=== PATIENT | male | born 1945 | race Caucasian/White ===

== ENCOUNTER 2016-10-18 09:55 | Observation (INO) | payer OTHER ==
[2016-10-18] MEDS ORDERED: Sodium Chloride 0.9% 1,000 ML PRIMARY IV ONE (10:06)
[2016-10-18] MEDS ORDERED: ONDANSETRON 4 MG/2 ML VIAL IVP ONE (10:06)
[2016-10-18] MEDS ORDERED: MORPHINE SULFATE 4 MG/1 ML IVP ONE (10:06)
--- NOTE | 2016-10-18 10:12 | PDOC ---
Chest Pain HPI - General Chief Complaint: Chest Pain Stated Complaint: CHEST PAIN Date Seen by Provider: 10/18/16 Time Seen by Provider: 10:07 Source: Patient Exam Limitations: POSITIVE: No limitations Treatment Prior to Arrival: REPORTS: None Nurse's Notes Reviewed & Considered: Yes - History of Present Illness Initial Comments: Patient comes in today with chief complaint of chest pain. Patient with sudden onset of chest pain which he describes as pressure in the left substernal region with radiation to his and left arm. He denies any associated shortness of breath. His pain began approximately 4 hours prior to presentation here in emergency department. At that time he got not to put his dog outside this evening when he noticed he had chest pressure. It was not changed since he awoke this morning at 0600. He denies any fever chills sweats, no headache, no cough, no abdominal pain, no nausea vomiting or diarrhea. Patient was convinced by a friend to come in and be evaluated. Body Location Affected: REPORTS: Chest Timing: REPORTS: Abrupt Duration: 4-6 hours Severity: Moderate Persistent/Worse since (date): 10/18/16 Persistent/Worse since (time): 06:00 Context: REPORTS: Sleep Quality: REPORTS: Pressure Radiation: REPORTS: Jaw (L), Shoulder (L), Arm (L) Modifying Factors: improves with: None Reported Similar Symptoms Previously: No Recently seen/treated/hospitalized: No Any Prior Injuries Related to Current Complaint?: No - Patient Home Medications Home Medications: Home Medications Aspirin [Baby Aspirin] 81 mg PO DAILY 11/21/11 Blood-Glucose Meter [Onetouch Verio Iq] 1 each MC BID #180 strip 07/13/15 Amlodipine Besylate 1 tab PO DAILY #90 tab 06/12/16 Lisinopril 1 tab ORAL QD #90 tab 06/12/16 Metformin HCl 1 tab PO BID #180 tab 06/12/16 Pravastatin Sodium [Pravachol] 1 tab PO QHS #90 tab 06/12/16 Sitagliptin Phosphate [Januvia] 1 tab PO DAILY #90 tab 06/12/16 - Patient Allergies Allergies/Adverse Reactions: Allergies Allergy/AdvReac Type Severity Reaction Status Date / Time NSAIDS (Non-Steroidal Allergy Mild NOT Verified 10/18/16 10:01 Anti-Inflamma APPLICABLE ibuprofen Allergy Unknown NOT Verified 10/18/16 10:01 APPLICABLE Penicillins Allergy Unknown Anaphylaxis Verified 10/18/16 10:01 Sulfa (Sulfonamide Allergy Unknown Anaphylaxis Verified 10/18/16 10:01 Antibiotics) [Sulfa(Sulfonamide Antibiotics)] hydrocodone AdvReac Severe acts like Verified 10/18/16 10:01 a fool, gets very hot Past Medical History - heen HEENT History: Denies History Cardiovascular History: Hypertension, Hyperlipidemia Respiratory History: Other (please comment) Additional Respiratory History: chronic tobacco abuse Gastrointestinal History: Other (please comment) Additional Gastrointestinal History: Appy Genitourinary History: Denies History Endocrine History: Type 2 Diabetes (oral) Musculoskeletal History: Limited ROM, Joint Pain, Other (please comment) Additional Musculoskeletal History: Rt Rotator cuff surgery, Lt shoulder sugery for bone spur Neurological History: Denies History Blood Disorders: Denies History Psychiatric History: Denies History Cancer History: Denies History Alcohol Use: None Substance Use Type: None ROS - Limitations ROS Limitations: No Limitations Constitution: REPORTS: Denies Symptoms Cardiovascular: REPORTS: Chest Pain Respiratory: REPORTS: Denies Resp Symptoms Neurological: REPORTS: Denies Neuro Symptoms Gastrointestinal: REPORTS: Denies GI Symptoms Endocrine: REPORTS: Denies Symptoms Musculoskeletal: REPORTS: Denies MS Symptoms Genitourinary: REPORTS: Denies Symptoms Eyes: REPORTS: Denies Symptoms ENT: REPORTS: Denies Symptoms Skin: REPORTS: Denies Skin Symptoms Lympathic: REPORTS: Denies Lympathic Symptoms Immunologic: POSITIVE: Denies Symptoms Psychiatric: POSITIVE: Denies Psych Symptoms Chest Pain PE - General Appearance General Appearance: REPORTS: Alert, Cooperative, No Acute Distress, No Evidence of Trauma - HEENT HEENT: POSITIVE: Head Inspection Nml, Eyes Inspection Nml, Ears Inspection Nml, Nose Inspection Nml, PERRL, EOMI - Neck Neck: REPORTS: Normal Inspection - Respiratory Respiratory: REPORTS: No Respiratory Distress, Breath Sounds Normal, Chest Non- Tender - Cardiovascular Cardiovascular: REPORTS: Regular Rate and Rhythm, Heart Sounds Normal - Abdomen Abdomen: Soft: (All Quadrants), Normal Bowel Sounds: (All Quadrants), Denies Tenderness: (All Quadrants) - Skin Skin: REPORTS: Intact, Normal For Race, Warm, Dry, No Rash - Extremities Extremity: Non-Tender: (All Extremities), Normal ROM: (All Extremities), Normal Inspection: (All Extremities) - Neurological / Psychological Neurological: POSITIVE: Affect 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, 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, 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 As Tested, Motor Normal, Sensation Normal Chest Pain Progress - Results Reviewed by me Xrays/CTs/US Reviewed by me: Yes Discussed with Radiologist: No Lab Results Reviewed: Yes Lab Results:: Laboratory Results 10/18/16 Range/Units 10:02 WBC 7.96 (4.8-10.8) 10^3/uL RBC 4.70 (4.70-6.10) 10^6/uL Hgb 14.7 (14.0-18.0) g/dL Hct 42.8 (42.0-52.0) % MCV 91.1 H (80-90) FL MCH 31.3 H (27-31) PG MCHC 34.3 (33-37) g/dL RDW Std Deviation 43.6 (39-50) fL RDW Coeff of Eve 13.2 (11.5-14.5) % Plt Count 246 (140-350) 10*3/uL MPV 10.3 (7.4-12.2) FL Immature Gran % (Auto) 0.3 (0-5) % Neut % (Auto) 54.4 (50-80) % Lymph % (Auto) 31.9 (10-50) % [place] % (Auto) 8.5 (5-15) % Eos % (Auto) 4.1 (0-8) % Baso % (Auto) 0.8 (0-1) % Immature Gran # (Auto) 0.02 10*3/UL Neut # (Auto) 4.33 10*3/UL Lymph # (Auto) 2.54 10*3/uL [place] # (Auto) 0.68 (0.3-0.8) 10*3/UL Eos # (Auto) 0.33 10*3/UL Baso # (Auto) 0.06 10*3/UL WBC Morphology Comment Normal morphology (NORM) Plt Morphology Comment Normal morphology (NORM) RBC Morph Comment Normal morphology (NORM) D-Dimer 0.30 (0.00-0.59) mg/L Sodium 135 (135-145) meq/L Potassium 4.5 (3.8-5.2) meq/L Chloride 98 (98-112) meq/L Carbon Dioxide 26 (23-33) meq/L Anion Gap 11 (5-20) BUN 10 (7-22) mg/dL Creatinine 0.8 (0.70-1.50) mg/dL Estimated GFR > 60 (>60 ml/min/1.73m(2)) BUN/Creatinine Ratio 12.50 (6-20) Glucose 304 H (78-110) mg/dL Calculated Osmolality 289.0 (267-292) mOsm/kg Calcium 9.5 (8.7-10.7) mg/dL Magnesium 1.8 (1.6-2.4) mg/dL Total Bilirubin 1.1 (0.3-1.2) mg/dL AST 21 (21-57) IU/L ALT 21 (21-72) IU/L Alkaline Phosphatase 70 (38-126) IU/L Troponin I < 0.012 (< 0.040) ng/mL NT-Pro-B Natriuret Pep 69.2 (0-125) PG/ML Total Protein 7.8 (6.1-8.0) g/dL Albumin 4.6 (3.5-4.8) g/dL Globulin 3.2 (2.50-4.10) g/dL Albumin/Globulin Ratio 1.40 (1.3-2.0) mg/g EKG Interpretation:: POSITIVE: Normal Sinus Rhythm (With sinus arrhythmia), Normal Rate, Normal Intervals, Normal QRS, Normal ST/T - Patient's Progress Pain Medication Addressed: POSITIVE: Yes Re-Examine Time: 10:58 Status: POSITIVE: Improved MDM / ED Course: The patient was evaluated, IV started, blood drawn and sent to lab for studies, EKG and chest x-rays were obtained. Patient's chest pain went from a 6 to a 1 with one sublingual nitroglycerin. His systolic blood pressure dropped to 101 after 1 nitroglycerin sublingual. Findings: EKG shows a sinus rhythm with a sinus arrhythmia and a rate of sitting 9 beats a minute. Chest x-ray shows no acute cardiopulmonary decompensation. Compensated metabolic panel shows glucose greater than 300 the remainder of the panel is normal. CBC is within normal limits. Magnesium is normal at 1.8. TSH is normal. Troponin is normal. D-dimer is normal. Assessment: Chest pain relieved with nitroglycerin. Normal troponin and equivocal EKG. Positive risk factors of diabetes mellitus, and history of smoking one pack a day. Plan: Admission rule out [place]. Quality Measure Initiative: CP/AMI: POSITIVE: EKG, ASA Quality Measure Initiative: CAP: POSITIVE: CXR or CT Patient Care Time - Estimated PCT Patient Care Time (In Minutes): 30 Vital Signs - Recent Vital Signs Vital Signs: Vital Signs (Last 8 hours) Temp Pulse Resp BP Pulse Ox 10/18/16 10:03 97.9 F 72 12 128/69 97 - VS Reviewed Vital Signs Reviewed: Yes Discharge Clinical Impression: Chest pain Discharge Disposition: Admit to Inpatient Condition: Stable Patient Instructions Given at Discharge: Chest Pain (ED) Date Decision to Admit to Inpatient: 10/18/16 Time Decision to Admit to Inpatient: 11:01
[2016-10-18] MEDS ORDERED: ASPIRIN 81 MG (BABY) CHEWABLE TABLET PO ONE (10:14)
[2016-10-18] MEDS ORDERED: NITROGLYCERIN 0.4 MG SL TAB (BOTTLE OF 3) SL ONE (10:14)
[2016-10-18 10:15] LABS: BASOPHILS # (AUTO) 0.06 10*3/UL; BASOPHILS % (AUTO) 0.8 % (0-1); EOSINOPHILS # (AUTO) 0.33 10*3/UL; EOSINOPHILS % (AUTO) 4.1 % (0-8); HEMATOCRIT 42.8 % (42.0-52.0); HEMOGLOBIN 14.7 g/dL (14.0-18.0); LYMPHOCYTES # (AUTO) 2.54 10*3/uL; MEAN CORPUSCULAR HEMOGLOBIN 31.3 PG (27-31); MEAN CORPUSCULAR HGB CONC 34.3 g/dL (33-37); MEAN CORPUSCULAR VOLUME 91.1 FL (80-90); MEAN PLATELET VOLUME 10.3 FL (7.4-12.2); MONOCYTES # (AUTO) 0.68 10*3/UL (0.3-0.8); MONOCYTES % (AUTO) 8.5 % (5-15); NEUTROPHILS # (AUTO) 4.33 10*3/UL; NEUTROPHILS % (AUTO) 54.4 % (50-80)
[2016-10-18 10:17] LABS: PLATELET MORPHOLOGY COMMENT NORMAL MORPHOLOGY (NORM); RBC MORPHOLOGY COMMENT NORMAL MORPHOLOGY (NORM); WBC MORPHOLOGY COMMENT NORMAL MORPHOLOGY (NORM)
[2016-10-18 10:20] LABS: BLOOD UREA NITROGEN 10 mg/dL (7-22); CALCIUM 9.5 mg/dL (8.7-10.7); EST GLOMERULAR FILTRATION > 60 (>60 ml/min/1.73m(2)); MAGNESIUM 1.8 mg/dL (1.6-2.4); SERUM ALBUMIN 4.6 g/dL (3.5-4.8)
--- NOTE | 2016-10-18 11:40 | PDOC ---
History and Physical - History of Present Illness History of Present Illness: The very nice 71-year-old gentleman with past medical history significant for diabetes and tobacco use was in ER complaining of chest pressure in the left substernal region that radiates to his left arm he denies any association of shortness of breath or diaphoresis and his pain started about 4 hours before presenting to the ER denies nausea vomiting chest pain was relieved by nitroglycerin sublingual initial troponins were negative Past Medical History Medical History: Diabetes, hypertension, tobacco use Tobacco Use: Current Every Day Smoker Substance Use Type: None Medication / Allergies Home Medications: Home Medications Medication Instructions Recorded Confirmed Type Aspirin [Baby Aspirin] 81 mg PO DAILY 11/21/11 10/18/16 History Blood-Glucose Meter [Onetouch 1 each MC BID #180 strip 07/13/15 10/18/16 Clinic Verio Iq] Amlodipine Besylate 1 tab PO DAILY #90 tab 06/12/16 10/18/16 Clinic Lisinopril 1 tab ORAL QD #90 tab 06/12/16 10/18/16 Clinic Metformin HCl 1 tab PO BID #180 tab 06/12/16 10/18/16 Clinic Pravastatin Sodium [Pravachol] 1 tab PO QHS #90 tab 06/12/16 10/18/16 Clinic Sitagliptin Phosphate [Januvia] 1 tab PO DAILY #90 tab 06/12/16 10/18/16 Clinic Allergies/Adverse Reactions: Allergies Allergy/AdvReac Type Severity Reaction Status Date / Time NSAIDS (Non-Steroidal Allergy Mild NOT Verified 10/18/16 10:01 Anti-Inflamma APPLICABLE ibuprofen Allergy Unknown NOT Verified 10/18/16 10:01 APPLICABLE Penicillins Allergy Unknown Anaphylaxis Verified 10/18/16 10:01 Sulfa (Sulfonamide Allergy Unknown Anaphylaxis Verified 10/18/16 10:01 Antibiotics) [Sulfa(Sulfonamide Antibiotics)] hydrocodone AdvReac Severe acts like Verified 10/18/16 10:01 a fool, gets very hot Review of Systems - Review of Systems All Systems: Reviewed & No Additional Complaints Except as Stated - Respiratory Respiratory: DENIES: Negative System Review, Cough, Sputum, Dyspnea At Rest, Dyspnea with Exertion, Pleuritic Pain, Hemoptysis, Wheezing, Other, See HPI - Cardiovascular Cardiovascular: REPORTS: Chest Pain - Gastrointestinal Gastrointestinal / Abdominal: DENIES: Negative System Review, Nausea, Vomiting, Diarrhea, Constipation, Abdominal Pain, Bloody Stool, Poor Appetite, Heartburn, Regurgitation, Bloating, Lactose Intolerance, Melena, Bright Red Blood Per Rectum, Other, See HPI - Genitourinary Genitourinary: DENIES: Negative System Review, Pain, Burning, Hematuria, Incontinence, Urgency, Hesitant Stream, Decreased Stream, Nocutria, Discharge, Sexual Dyfunction, Other, See HPI Exam - Vitals Vital Signs: Vital Signs Temperature 97.9 F Temperature Source Temporal Artery Scan Pulse Rate [Pulse Oximeter] 72 Respiratory Rate 12 Blood Pressure [Right Arm] 128/69 Pulse Ox 97 Oxygen Delivery Method Room Air Height 5 ft 6 in Weight 68.039 kg - General General Appearance: POSITIVE: No Acute Distress, Cooperative - Head Head Exam: POSITIVE: Normal Inspection, Normocephalic, Atraumatic - ENT ENT Exam: POSITIVE: Normal Exam - Neck Neck Exam: POSITIVE: Normal Inspection, Full ROM, No Tenderness - Respiratory Respiratory Exam: POSITIVE: Clear to Auscultation - Bilaterally, Breathing Non Labored, Normal To Percussion, Normal to Percussion and Palpation - Cardiovascular Cardiovascular Exam: POSITIVE: RRR, No Murmur, No Clicks, No Gallops - GI/Abdominal GI/Abdominal Exam: POSITIVE: Normal Bowel Sounds, Non Tender, Soft - Extremities Extremities Exam: POSITIVE: No Clubbing Present, No Edema Present, No Cyanosis Present - Neurological Neurological Exam: POSITIVE: Alert, Oriented x 3, CN II-XII Intact, No Facial Droop - Psychiatric Psychiatric Exam: POSITIVE: Normal Affect Results - Labs CBC and BMP: 10/18/16 10:02 10/18/16 10:02 Labs - Last 24 Hours: Laboratory Results 10/18/16 Range/Units 10:02 WBC 7.96 (4.8-10.8) 10^3/uL RBC 4.70 (4.70-6.10) 10^6/uL Hgb 14.7 (14.0-18.0) g/dL Hct 42.8 (42.0-52.0) % MCV 91.1 H (80-90) FL MCH 31.3 H (27-31) PG MCHC 34.3 (33-37) g/dL RDW Std Deviation 43.6 (39-50) fL RDW Coeff of Eve 13.2 (11.5-14.5) % Plt Count 246 (140-350) 10*3/uL MPV 10.3 (7.4-12.2) FL Immature Gran % (Auto) 0.3 (0-5) % Neut % (Auto) 54.4 (50-80) % Lymph % (Auto) 31.9 (10-50) % [place] % (Auto) 8.5 (5-15) % Eos % (Auto) 4.1 (0-8) % Baso % (Auto) 0.8 (0-1) % Immature Gran # (Auto) 0.02 10*3/UL Neut # (Auto) 4.33 10*3/UL Lymph # (Auto) 2.54 10*3/uL [place] # (Auto) 0.68 (0.3-0.8) 10*3/UL Eos # (Auto) 0.33 10*3/UL Baso # (Auto) 0.06 10*3/UL WBC Morphology Comment Normal morphology (NORM) Plt Morphology Comment Normal morphology (NORM) RBC Morph Comment Normal morphology (NORM) D-Dimer 0.30 (0.00-0.59) mg/L Sodium 135 (135-145) meq/L Potassium 4.5 (3.8-5.2) meq/L Chloride 98 (98-112) meq/L Carbon Dioxide 26 (23-33) meq/L Anion Gap 11 (5-20) BUN 10 (7-22) mg/dL Creatinine 0.8 (0.70-1.50) mg/dL Estimated GFR > 60 (>60 ml/min/1.73m(2)) BUN/Creatinine Ratio 12.50 (6-20) Glucose 304 H (78-110) mg/dL Calculated Osmolality 289.0 (267-292) mOsm/kg Calcium 9.5 (8.7-10.7) mg/dL Magnesium 1.8 (1.6-2.4) mg/dL Total Bilirubin 1.1 (0.3-1.2) mg/dL AST 21 (21-57) IU/L ALT 21 (21-72) IU/L Alkaline Phosphatase 70 (38-126) IU/L Troponin I < 0.012 (< 0.040) ng/mL NT-Pro-B Natriuret Pep 69.2 (0-125) PG/ML Total Protein 7.8 (6.1-8.0) g/dL Albumin 4.6 (3.5-4.8) g/dL Globulin 3.2 (2.50-4.10) g/dL Albumin/Globulin Ratio 1.40 (1.3-2.0) mg/g TSH 1.51 (0.2700-4.2000) uIU/mL Assessment and Plan - Patient Problems (1) Chest pain Current Visit: Yes Status: Acute Comment: We will admit the patient is a pretty good story and risk factors of hypertension diabetes and smoking we will rule out with serial troponins continue usual home meds consisting of a statin aspirin and diabetes meds we will order chemical stress test for him patient was examined with nursing staff and case discussed with nursing staff and patient (2) Diabetes Current Visit: Yes Status: Acute Comment: Continue usual medication
[2016-10-18] MEDS ORDERED: NITROGLYCERIN 0.4 MG SL TAB (BOTTLE OF 3) SL PRN (11:54)
[2016-10-18] MEDS ORDERED: LIDOCAINE W/ SODIUM BICARB 0.5 ML SYR SUBD PRN (11:54)
[2016-10-18] MEDS ORDERED: NORMAL SALINE 10 ML SYRINGE FLUSH IVP PRN (11:54)
--- NOTE | 2016-10-18 12:51 | EKG ---
[address] [address] Measurements Intervals [place] Rate: 69 P: 72 IN: 167 QRS: 56 QRSD: 93 T: 54 QT: 376 QTc: 395 Interpretive Statements SINUS RHYTHM WITH SINUS ARRHYTHMIA INCOMPLETE RIGHT BUNDLE BRANCH BLOCK No previous ECG available for comparison Electronically Signed On 10-18-16 16:42:23 MDT by Prashant Fonseca [email or web address]
[2016-10-18 13:26] LABS: TROPONIN I < 0.012 ng/mL (< 0.040)
[2016-10-18] MEDS: metFORMIN 500 MG TABLET PO SCH (20:03)
[2016-10-18] MEDS ORDERED: Pravastatin 80mg Tab PO SCH (21:00)
[2016-10-19 05:12] LABS: BLOOD UREA NITROGEN 16 mg/dL (7-22); BUN/CREATININE RATIO 17.77 (6-20); CALCIUM 9.4 mg/dL (8.7-10.7); EST GLOMERULAR FILTRATION > 60 (>60 ml/min/1.73m(2)); SERUM ALBUMIN 3.8 g/dL (3.5-4.8)
[2016-10-19] MEDS: metFORMIN 500 MG TABLET PO SCH (08:07)
[2016-10-19] MEDS ORDERED: ENOXAPARIN SODIUM 40 MG/0.4 ML SYRINGE SUBCUT SCH (09:00)
[2016-10-19] MEDS ORDERED: LISINOPRIL 5 MG TABLET PO SCH (09:00)
[2016-10-19] MEDS ORDERED: sitaGLIPtin Tab 100 MG TAB PO SCH (09:00)
[2016-10-19] MEDS ORDERED: AmLODIPine Tab 5 MG TABLET PO SCH (09:00)
[2016-10-19] MEDS ORDERED: ASPIRIN 81 MG (BABY) CHEWABLE TABLET PO SCH (09:00)
--- NOTE | 2016-10-19 09:50 | STRESSTEST ---
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
--- NOTE | 2016-10-19 10:31 | DCSUMMARY ---
Hospitalization Summary Hospital Course: Final Discharge Diagnosis: Current Visit Problems Problem Status Priority Diagnosed Code Chest pain Acute R07.9 Diabetes Acute E11.9 Diagnostic Data, Laboratory Data, and Procedures of Signifigance: Laboratory Results 10/18/16 10/18/16 10/18/16 Range/Units 10:02 10:06 16:18 WBC 7.96 (4.8-10.8) 10^3/uL RBC 4.70 (4.70-6.10) 10^6/uL Hgb 14.7 (14.0-18.0) g/dL Hct 42.8 (42.0-52.0) % MCV 91.1 H (80-90) FL MCH 31.3 H (27-31) PG MCHC 34.3 (33-37) g/dL RDW Std Deviation 43.6 (39-50) fL RDW Coeff of Eve 13.2 (11.5-14.5) % Plt Count 246 (140-350) 10*3/uL MPV 10.3 (7.4-12.2) FL Immature Gran % (Auto) 0.3 (0-5) % Neut % (Auto) 54.4 (50-80) % Lymph % (Auto) 31.9 (10-50) % [place] % (Auto) 8.5 (5-15) % Eos % (Auto) 4.1 (0-8) % Baso % (Auto) 0.8 (0-1) % Immature Gran # (Auto) 0.02 10*3/UL Neut # (Auto) 4.33 10*3/UL Lymph # (Auto) 2.54 10*3/uL [place] # (Auto) 0.68 (0.3-0.8) 10*3/UL Eos # (Auto) 0.33 10*3/UL Baso # (Auto) 0.06 10*3/UL WBC Morphology Comment Normal morphology (NORM) Plt Morphology Comment Normal morphology (NORM) RBC Morph Comment Normal morphology (NORM) D-Dimer 0.30 (0.00-0.59) mg/L Sodium 135 (135-145) meq/L Potassium 4.5 (3.8-5.2) meq/L Chloride 98 (98-112) meq/L Carbon Dioxide 26 (23-33) meq/L Anion Gap 11 (5-20) BUN 10 (7-22) mg/dL Creatinine 0.8 (0.70-1.50) mg/dL Estimated GFR > 60 (>60 ml/min/1.73m(2)) BUN/Creatinine Ratio 12.50 (6-20) Glucose 304 H (78-110) mg/dL Calculated Osmolality 289.0 (267-292) mOsm/kg Calcium 9.5 (8.7-10.7) mg/dL Magnesium 1.8 (1.6-2.4) mg/dL Total Bilirubin 1.1 (0.3-1.2) mg/dL AST 21 (21-57) IU/L ALT 21 (21-72) IU/L Alkaline Phosphatase 70 (38-126) IU/L Total Creatine Kinase 45 L (55-170) IU/L Troponin I < 0.012 < 0.012 < 0.012 (< 0.040) ng/mL NT-Pro-B Natriuret Pep 69.2 (0-125) PG/ML Total Protein 7.8 (6.1-8.0) g/dL Albumin 4.6 (3.5-4.8) g/dL Globulin 3.2 (2.50-4.10) g/dL Albumin/Globulin Ratio 1.40 (1.3-2.0) mg/g TSH 1.51 (0.2700-4.2000) uIU/mL 10/19/17 Range/Units 04:45 WBC (4.8-10.8) 10^3/uL RBC (4.70-6.10) 10^6/uL Hgb (14.0-18.0) g/dL Hct (42.0-52.0) % MCV (80-90) FL MCH (27-31) PG MCHC (33-37) g/dL RDW Std Deviation (39-50) fL RDW Coeff of Eve (11.5-14.5) % Plt Count (140-350) 10*3/uL MPV (7.4-12.2) FL Immature Gran % (Auto) (0-5) % Neut % (Auto) (50-80) % Lymph % (Auto) (10-50) % [place] % (Auto) (5-15) % Eos % (Auto) (0-8) % Baso % (Auto) (0-1) % Immature Gran # (Auto) 10*3/UL Neut # (Auto) 10*3/UL Lymph # (Auto) 10*3/uL [place] # (Auto) (0.3-0.8) 10*3/UL Eos # (Auto) 10*3/UL Baso # (Auto) 10*3/UL WBC Morphology Comment (NORM) Plt Morphology Comment (NORM) RBC Morph Comment (NORM) D-Dimer 0.67 H (0.00-0.59) mg/L Sodium 135 (135-145) meq/L Potassium 4.4 (3.8-5.2) meq/L Chloride 103 (98-112) meq/L Carbon Dioxide 23 (23-33) meq/L Anion Gap 9 (5-20) BUN 16 (7-22) mg/dL Creatinine 0.9 (0.70-1.50) mg/dL Estimated GFR > 60 (>60 ml/min/1.73m(2)) BUN/Creatinine Ratio 17.77 (6-20) Glucose 261 H (78-110) mg/dL Calculated Osmolality 289.0 (267-292) mOsm/kg Calcium 9.4 (8.7-10.7) mg/dL Magnesium (1.6-2.4) mg/dL Total Bilirubin 0.9 (0.3-1.2) mg/dL AST 17 L (21-57) IU/L ALT 20 L (21-72) IU/L Alkaline Phosphatase 61 (38-126) IU/L Total Creatine Kinase (55-170) IU/L Troponin I (< 0.040) ng/mL NT-Pro-B Natriuret Pep (0-125) PG/ML Total Protein 6.5 (6.1-8.0) g/dL Albumin 3.8 (3.5-4.8) g/dL Globulin 2.8 (2.50-4.10) g/dL Albumin/Globulin Ratio 1.30 (1.3-2.0) mg/g TSH (0.2700-4.2000) uIU/mL History and Physical pertinent to Admission: Course of Hospitalization: Is a very nice 71-year-old gentleman with past medical history significant for diabetes and hypertension comes into the hospital with the substernal chest pain radiating to his left arm and hand this is all resolved now is that her troponins remained negative 3 no changes on EKG we have done a stress test today and we are waiting for results and imaging most likely the results we will have this afternoon if these are negative he will be discharged home in stable and improved condition he is very excited about the leaving the hospital since he has to receive a long chain beamer to work tomorrow. Denies chest pain nausea vomiting stress test was mildly positive I discussed the case with Dr. Campbell cardiology at [facility] he recommended that the patient did not need to go up in transfer for immediate catheter since the troponins were negative no acute signs on EKG he recommended that the patient go to his office on and possibly have a cast on Friday he said that his office will call the patient at home he knew the number since the patient had seen him in the past or their office I've called Beth the nurse charge nurse who communicated all the above to the patient and the patient was discharged home On the date of discharge, the patient was examined: Gen.: No acute distress, alert, nontoxic Heart: Regular rate and rhythm, no murmurs, clicks, gallops, or rubs Lungs: Clear to auscultation bilaterally, breathing is nonlabored Abdomen/GI: Normal tones on auscultation, soft, nontender, nondistended Musculoskeletal/extremities: No clubbing, cyanosis, or edema Vitals reviewed and are listed below Vital Signs (24 hrs) Temp Pulse Pulse Pulse Resp BP Pulse Ox 10/19/16 09:00 97.2 F 60 18 128/64 96 10/19/16 07:00 55 L 10/19/16 05:11 93 10/19/16 04:59 97.1 F 55 L 20 119/47 93 10/19/16 03:00 56 L 10/19/16 01:00 97.6 F 61 18 125/47 97 10/18/16 23:00 56 L 10/18/16 20:17 98.0 F 63 16 112/55 92 10/18/16 19:00 63 60 10/18/16 17:00 98.1 F 57 L 20 105/49 93 10/18/16 13:00 61 16 124/60 94 10/18/16 12:03 61 20 Assessment and Plan: 1. As per discharge assessments above 2. Disposition: Home if stress test is negative depending on the severity we will arrange follow-up with the cardiology and we get the result if it is positive 3. Condition on discharge, stable and improved. 4. Diet: regular diet 5. Activities: resume normal activities 6. Follow-Up: 1. PCP 2. 7. Medications at the Time of Discharge: Home Medications Medication Instructions Recorded Confirmed Type Aspirin [Baby Aspirin] 81 mg PO DAILY 11/21/11 10/18/16 History Blood-Glucose Meter [Onetouch 1 each MC BID #180 strip 07/13/15 10/18/16 Clinic Verio Iq] Amlodipine Besylate 1 tab PO DAILY #90 tab 06/12/16 10/18/16 Clinic Lisinopril 1 tab ORAL QD #90 tab 06/12/16 10/18/16 Clinic Metformin HCl 1 tab PO BID #180 tab 06/12/16 10/18/16 Clinic Pravastatin Sodium [Pravachol] 1 tab PO QHS #90 tab 06/12/16 10/18/16 Clinic Sitagliptin Phosphate [Januvia] 1 tab PO DAILY #90 tab 06/12/16 10/18/16 Clinic 8. Time, care, counseling and coordination of care for this discharge is greater than 30 minutes. Exam - Vitals Vital Signs: Vital Signs Temperature 97.2 F Temperature Source Temporal Artery Scan Pulse Rate [Apical] 60 Pulse Rate [Pulse Oximeter] 60 Pulse Rate 55 Respiratory Rate 18 Blood Pressure [Right Arm] 128/64 Pulse Ox 96 Oxygen Delivery Method Room Air Height 5 ft 6 in Weight 67.041 kg Patient Problems - Patient Problem List (1) Chest pain Status: Acute (2) Diabetes Status: Acute
--- NOTE | 2016-10-19 12:42 | DI ---
XR CXR 1VW,10/18/2016 10:19 AM: Clinical History: Chest pain Previous Exam: March 04, 2013 Findings: A single frontal radiograph of the chest is obtained, and demonstrates some mild subsegmental atelect asis in the lung bases. The cardiomediastinum and bony thorax are unremarkable when compared with the prior exams. Impression: No acute disease.
--- NOTE | 2016-10-19 12:46 | DI ---
HISTORY: Chest pain. PREVIOUS EXAM: None at this facility. TECHNIQUE: The patient was stressed by Dr. Randolph Gross. The standard Lexiscan protocol was used. Please see the Doctor's report. At the designated time, 33.0 mCi of 99Tc-sestimibi was injected IV. Stress gated tomograms were acquired within one hour of the i njection. For the resting scans, 34.0 mCi was injected IV and resting gated tomograms were acquired in similar fashion. Stress scans were performed on October 18, 2016; the resting scans were performed on October 19, 2016. FINDINGS: Quantitative and qualitative analyses were performed. Quantitative analysis was performed with the [facility] [id number] protocols. Very low dose limited CT scans of the chest are obtained through the level of the heart for attenuation correction of the gated stress and rest cardiac SPECT data. Non-attenuated and attenuated scans were processed for review, and the atten uated scans were used for final interpretation of this study. Review of the raw data images and quality assurance supervisor final files indicate that these series of examinations ar e of good quality. Stress and rest left ventricular chamber sizes are normal. Stress and rest LVEF ar e 73 % and 68 %, respectively. There is a medium-sized anterior apical fixed defect as well as a large inferior septal defect. These are both predominantly fixed with some very mild reversibility involving the apex and a very small a sergey around the apex. Transient ischemic dilatation ratio is 1.02, with a normal range up to 1.22 for patients stressed wit h the Kumar protocol and up to 1.33 for patients stressed with the Lexiscan protocol. The very low dose CT scans through the level of the heart demonstrate multiple coronary artery calcif ications and peripheral vascular calcifications. There is a 12 mm nodule within the right lung base j ust superior to the right hemithorax. The upper abdomen is unremarkable. IMPRESSION: 1. Predominantly fixed anterior and septal wall defects with very mild reversibility of the apex. 2. Normal ejection fraction and wall motion. 3. 12 mm nodule within the right lung base. Recommend follow-up imaging as per Fleischner Society gu idelines.
[2016-10-19 12:51] VITALS: RESP 16; TEMP 97.8
== END 2016-10-19 13:33 | disposition home or self-care (01) ==
LOC: ER 09:55 → MED/SURG 11:31
PROVIDERS: ADMIT Internal Medicine; ATTEND Internal Medicine
DX: R07.9 Chest pain, unspecified (principal); E11.9 Type 2 diabetes mellitus without complications; Z72.0 Tobacco use
CPT/HCPCS: 36415 ×2; 71010; 78452; 80053 ×2; 82550; 83735; 83880; 84443; 84484; 85025; 85379 ×2; 93005; 93010; 93016; 93017; 93018; 94761; 99284 ×2; A9500; J1650; J2785; J7030

== ENCOUNTER → 2016-12-06 | Outpatient (CLI) | payer OTHER ==
[2016-12-06 10:15] LABS: HEMOGLOBIN A1C 13.21 % (4.2-6.0)
[2016-12-06 10:46] LABS: CREATININE, URINE 172.9 MG/DL (15-500)
== END ==
LOC: LAB 08:23
PROVIDERS: ATTEND Internal Medicine
DX: E11.9 Type 2 diabetes mellitus without complications (principal)
CPT/HCPCS: 82043; 83036

== ENCOUNTER → 2016-12-24 | Outpatient (CLI) | payer OTHER | LOC: MMPC 15:10 | PROVIDERS: ATTEND Internal Medicine | DX: E11.9 Type 2 diabetes mellitus without complications (principal); I10 Essential (primary) hypertension; E78.5 Hyperlipidemia, unspecified | CPT/HCPCS: G0108 ==

== ENCOUNTER → 2017-01-14 | Outpatient (CLI) | payer OTHER ==
[2017-01-14 17:31] LABS: BASOPHILS # (AUTO) 0.09 10*3/UL; EOSINOPHILS % (AUTO) 5.6 % (0-8); HEMATOCRIT 44.8 % (42.0-52.0); HEMOGLOBIN 14.9 g/dL (14.0-18.0); MEAN CORPUSCULAR HEMOGLOBIN 30.4 PG (27-31); MEAN CORPUSCULAR HGB CONC 33.3 g/dL (33-37); MEAN CORPUSCULAR VOLUME 91.4 FL (80-90); MEAN PLATELET VOLUME 11.2 FL (7.4-12.2); MONOCYTES # (AUTO) 0.74 10*3/UL (0.3-0.8); MONOCYTES % (AUTO) 8.4 % (5-15); NEUTROPHILS % (AUTO) 61.1 % (50-80)
[2017-01-14 17:34] LABS: PLATELET MORPHOLOGY COMMENT NORMAL MORPHOLOGY (NORM); RBC MORPHOLOGY COMMENT NORMAL MORPHOLOGY (NORM); WBC MORPHOLOGY COMMENT NORMAL MORPHOLOGY (NORM)
[2017-01-14 17:38] LABS: BLOOD UREA NITROGEN 14 mg/dL (7-22); BUN/CREATININE RATIO 15.55 (6-20); CALCIUM 9.7 mg/dL (8.7-10.7); CHOL/HDL RATIO 3.28 RATIO (0-4.0); EST GLOMERULAR FILTRATION > 60 (>60 ml/min/1.73m(2)); HDL CHOLESTEROL 42 mg/dL (40-150); SERUM ALBUMIN 4.5 g/dL (3.5-4.8); SERUM CHOLESTEROL 138 mg/dL (120-200)
[2017-01-14 17:41] LABS: CREATININE, URINE 85.8 MG/DL (15-500)
[2017-01-14 18:26] LABS: HEMOGLOBIN A1C 12.07 % (4.2-6.0)
== END ==
LOC: LAB 08:16
PROVIDERS: ATTEND Internal Medicine
DX: E11.9 Type 2 diabetes mellitus without complications (principal); I10 Essential (primary) hypertension; E78.5 Hyperlipidemia, unspecified; R91.1 Solitary pulmonary nodule; Z72.0 Tobacco use; Z12.5 Encounter for screening for malignant neoplasm of prostate
CPT/HCPCS: 80053; 80061; 82043; 82550; 83036; 84443; 85025; G0103

== ENCOUNTER → 2017-01-15 | Outpatient (CLI) | payer OTHER | LOC: MMPC 11:11 | PROVIDERS: ATTEND Internal Medicine | DX: E11.9 Type 2 diabetes mellitus without complications (principal); I10 Essential (primary) hypertension; E78.5 Hyperlipidemia, unspecified; R91.1 Solitary pulmonary nodule; J44.1 Chronic obstructive pulmonary disease with (acute) exacerbation; F17.210 Nicotine dependence, cigarettes, uncomplicated | CPT/HCPCS: 99214; G0463 ==

== ENCOUNTER → 2017-02-19 | Outpatient (CLI) | payer OTHER | LOC: MMPC 13:00 | PROVIDERS: ATTEND Internal Medicine | DX: E11.9 Type 2 diabetes mellitus without complications (principal); I10 Essential (primary) hypertension; E78.5 Hyperlipidemia, unspecified; Z79.4 Long term (current) use of insulin; Z71.3 Dietary counseling and surveillance | CPT/HCPCS: G0108 ==

== ENCOUNTER 2018-03-19 06:33 | Observation (INO) ==
[~2018-03-19 06:33] MED LIST: LIDOCAINE W/ SODIUM BICARB 0.5 ML SYR ONE; LIDOCAINE W/ SODIUM BICARB 0.5 ML SYR SUBD ONE; Lactated Ringers 1,000 ML PRIMARY IV ONE; Sodium Chloride 0.9% 250 ML IV ONE; Vancomycin Inj 1gm vial ONE; ceFAZolin Inj 2gm (Premix) 2 GM/50 ML BAG IV ONE
[2018-03-19] MEDS ORDERED: Sodium Chloride 0.9% vial 10 ML ONE (06:50)
[2018-03-19] MEDS ORDERED: BACITRACIN 50,000 UNIT VIAL IRRIG ONE (06:51)
[2018-03-19] MEDS ORDERED: Vancomycin Inj 1gm vial ONE (06:51)
[2018-03-19] MEDS ORDERED: THROMBIN (BOVINE) 20,000 UNIT KIT TOPICAL ONE (06:51)
[2018-03-19] MEDS ORDERED: REMIFENTANIL HCL 5 MG VIAL IV ONE ×2 (07:30→11:07)
[2018-03-19] MEDS ORDERED: LIDOCAINE MPF 2% - 5 ML (20 MG/1 ML) ONE (07:30)
[2018-03-19] MEDS ORDERED: MIDAZOLAM 5 MG/1 ML ONE ×2 (07:30→14:40)
[2018-03-19] MEDS ORDERED: Propofol 1,000 MG/100 ML VIAL IV ONE ×3 (07:31→12:21)
[2018-03-19] MEDS: Lactated Ringers 1,000 ML PRIMARY IV ONE ×2 (07:36→14:40)
[2018-03-19 07:42] LABS: Hematocrit [HCT] 43.6 % (42.0-52.0); Hemoglobin [HGB] 14.7 g/dL (14.0-18.0); MEAN CORPUSCULAR HEMOGLOBIN 30.9 PG (27-31); MEAN CORPUSCULAR HGB CONC 33.7 g/dL (33-37); MEAN CORPUSCULAR VOLUME 91.6 FL (80-90); MEAN PLATELET VOLUME 9.9 FL (7.4-12.2); RED BLOOD COUNT 4.76 10^6/uL (4.70-6.10)
[2018-03-19] MEDS ORDERED: LIDOCAINE HCL 5 ML JEL TOPICAL ONE (07:44)
[2018-03-19] MEDS ORDERED: ePHEDrine Inj 50 MG/ML AMP ONE (08:34)
[2018-03-19] MEDS ORDERED: LIDOCAINE HCL 2 % 10 ML JELLY URO-JECT TOPICAL ONE ×2 (08:55→10:25)
[2018-03-19] MEDS ORDERED: Lactated Ringers 1,000 ML PRIMARY IV ONE ×2 (10:30→16:04)
[2018-03-19] MEDS ORDERED: ONDANSETRON 4 MG/2 ML VIAL IVP PRN ×2 (10:47→15:48)
[2018-03-19] MEDS ORDERED: fentaNYL Inj 100 MCG/2 ML VIAL IVP PRN (10:47)
[2018-03-19] MEDS ORDERED: HYDROmorphone 2 MG/1 ML IVP PRN (10:47)
[2018-03-19] MEDS ORDERED: LIDOCAINE W/ SODIUM BICARB 0.5 ML SYR SUBD PRN ×2 (10:47→15:48)
[2018-03-19] MEDS ORDERED: MIDAZOLAM HCL 50 MG/10 ML VIAL IVP PRN (10:47)
[2018-03-19] MEDS ORDERED: REMIFENTANIL 1 MG/1 ML IV ONE (12:53)
[2018-03-19] MEDS ORDERED: HYDROmorphone 2 MG/1 ML ONE ×2 (13:08→14:14)
[2018-03-19] MEDS ORDERED: oxyCODONE-ACETAMINOPHEN 5-325 TAB PO PRN (13:36)
[2018-03-19] MEDS ORDERED: DIAZEPAM 5 MG TABLET PO PRN ×2 (13:36→15:48)
[2018-03-19] MEDS ORDERED: ACETAMINOPHEN 325 MG TABLET PO PRN ×2 (13:36→15:48)
[2018-03-19] MEDS ORDERED: CYCLOBENZAPRINE 10 MG TABLET PO PRN ×2 (13:36→15:48)
[2018-03-19] MEDS ORDERED: MORPHINE SULFATE 2 MG/1 ML IVP PRN (13:36)
[2018-03-19] MEDS ORDERED: D5-1/2NS + 20mEq KCL 1,000 ML PRIMARY IV SCH (13:45)
[2018-03-19] MEDS ORDERED: ceFAZolin Inj 1 GM in Sodium Chloride 0.9% 100 ML IV SCH (13:45)
[2018-03-19] MEDS ORDERED: LIDOCAINE HCL 2 % 10 ML JELLY URO-JECT TOPICAL PRN ×2 (13:49→15:48)
[2018-03-19] MEDS ORDERED: DOCUSATE 100 MG CAPSULE PO PRN ×2 (13:49→15:48)
--- NOTE | 2018-03-19 14:02 | CRNA.PROGR ---
Anesthesia Recovery Phase I - Post Anesthesia Evaluation Patient's Condition on Arrival in Phase I: Stable Pain Level: 0
--- NOTE | 2018-03-19 14:03 | CRNA.PROGR ---
Anesthesia Time - - Start date: 03/19/18 End date: 03/19/18 - Procedure/Recovery Time Anesthesia : Time In: 09:00 Anesthesia : Time Out: 13:42 Anesthesia : Total Time: 282 - Total Anesthesia Time Total Anesthesia Time (minutes): 282 - Other Weight: 70.76 kg Height: 5 ft 6 in Body Mass Index (BMI): 25.2 Physical Status: P2 Anesthesia Type: General Anesthesia : ET (TIVA)
[2018-03-19] MEDS: oxyCODONE-ACETAMINOPHEN 5-325 TAB PO PRN ×2 (16:05→20:21)
--- NOTE | 2018-03-19 16:11 | OPNOTE.NEU ---
Operative Note Operative Note: Neurosurgical Services Operative Note [facility] [place] Date of Surgery: 03-19-2018 Preoperative Diagnosis: Cervical herniated disc with radiculopathy, C4-5, C5-6, C6-7 Post-Op Diagnosis Codes: Same Procedure(s): 1. Anterior Cervical Decompression; 12745, [id number] 2. Anterior Cervical Arthrodesis; 97958, 27914K3 3. Anterior Cervical Plating; 65438 4. Allograft Structural Graft; 50159 X3 5. Preparation of bone graft: A. Local autograft, same incision; B. [place] of morselized iliac crest autograft, separate incision; C. [place] of bone marrow aspirate, iliac crest; D. Addition of osteopromotive calcium compound; allograft DBM; 6. Intraoperative microsurgical technique 7. Intraoperative fluoroscopic navigation, [id number] 8. Intraoperative continuous neural monitoring, motor and sensory Surgeon(s): Walker Addison MD Microfilm Machine Operator(s): Ro Castellano PA-C, Larry Jett, JOSEPH Anesthesia: GET Anesthesiologist / JAVA SCALA DEVELOPER: Unknown Brief Findings: Severe spondylosis with neural compression at all 3 levels. Procedure(s): We discussed the procedure, risks, advantages and disadvantages of surgical intervention at length. To prevent further pain, disability and potential progression of neurologic deficits, the patient would like to proceed with surgery. Introduction: After obtaining informed consent, careful consideration of the pre -operative studies and evaluation, the patient asked to proceed with surgery. The patient was taken to the operating room, given an anesthetic, positioned and prepared for surgery. All pressure points were meticulously padded and great care was taken to insure the patient was appropriately positioned to avoid any abnormal strain on the extremities or any other area. The operative region was prepared with iodine solution and isolated aseptically using routine sterile draping. Position / Approach: The patient was placed in the supine position such that an anterior approach could be taken to the neck. EXPOSURE: A right neck incision along the abnormal levels which was confirmed using fluoroscopy was made through skin, subcutaneous fat and the platysma muscle. Using sharp and blunt dissection, the anterior spine was exposed medial to the sternocleidomastoid muscle and carotid sheath and the longus coli muscles were carefully reflected off the vertebrae using electrocautery and a deep self-retaining retractor was place beneath them. Thereafter, distraction pins were place within the vertebral bodies above and below the abnormal levels. The inner spaces were then distracted to improve exposure during the decompression. DECOMPRESSION: While distracting the interspace, a radical discectomy was performed starting at C4-5. After removal of the disk using curettes considerable posterior osteophytosis was encountered particularly on the left and a large disc herniation was identified. The osteophyte was removed using a high speed drill equipped with a severino bur, microsurgical technique and the intraoperative microscope for visualization. There was clear evidence of compression upon the exiting nerve root and spinal cord. The posterior longitudinal ligament was taken down and wide foraminotomies were fashioned on both sides. The epidural space was explored extensively confirming no further compression upon the neural elements. Identical decompressions were then performed at C5-6 and C6-7. There were similar findings at each of the other levels. It should be noted that motor activity from the deltoid and biceps decreased after traction on the arms for visualization at the C6-7 level. ARTHRODESIS: After the decompression, the height of the inner spaces was measured and allograft bone grafts were selected which would fit snuggly within the spaces. The grafts were loaded with bone graft which was prepared as described. The grafts were placed using the fluoroscope to assess the graft positions so that they could be countersunk appropriately. HARVEST / PREPARATION of BONE GRAFT: The "bone graft" was prepared from the patient's own bone derived from the left hip collected by curetting bone from the hip through a separate slab incision([id number]). This morselized bone was admixed with bone marrow aspirate also obtained from the hip (-11115). Autologous local bone which was removed during the decompression through the same incision used for the fusion was stripped of surrounding soft tissues, morselized (-19781) and mixed with osteopromotive calcium compound as well as allograft demineralized bone matrix ([id number]), and this was combined with the previously described hip graft and concentrated bone marrow aspirate to form the "bone graft." ANTERIOR PLATE INSTRUMENTATION: Having completed the decompression and placement of the interbody spacers, a plate was selected which spanned the levels and also could be contoured to the anterior aspect of the patient's cervical spine. Osteophytes along the anterior spine were removed to allow the plate to conform to the spine appropriately. The plate was then secured to the spine using 14 mm screws, all of which were locked into position using the locking mechanism of the plate. Additional bone graft material was placed around the plate and around the implanted spacer within the inner space. NEED FOR HADOOP APPLICATION DEVELOPER: Larry Jett PA-C and Ro Castellano PA-C were instrumental throughout the operation to assist with exposure of the neural structures and protect them as the bony elements were removed. They were also instrumental during placement of the implant(s) which often takes more than two hands to perform safely and efficiently. CLOSURE: The wound was irrigated with copious amounts of antibiotic impregnated saline solution and immaculate hemostasis was achieved using thrombin soaked Gelfoam, bone wax along the bony margins, as well as electrocautery. Surgicel was used to cover the implanted graft and plate. A drain was placed in the pre-vertebral space and tunneled to an exit site lateral to the formed incision. The wound was then closed in anatomical layers using Vicryl suture in the subcutaneous tissue layers followed by Steri-Strips on the skin. Estimated Blood Loss: Minimal Operative hemorrhage? Yes, expected amount. Drains: Hemovac Condition: Good Complications: None Authenticated by Dr. Addison On Production CPT: 84747, 76018Q7, 48901, 95893V7, 04359-27, 58511-89, 27144-84, 26760-90, [id number]-EJ
[2018-03-19] MEDS ORDERED: MIDAZOLAM 5 MG/1 ML IVP ONE (16:18)
--- NOTE | 2018-03-19 16:32 | DI ---
XR C-SPINE 2-3 VW,03/19/2018 3:12 PM: Clinical History: Status post surgical fusion. Previous Exam: July 10, 2017 Findings: AP and lateral views of the cervical spine are obtained, and demonstrate stable diffuse degenerative changes. There is new anterior screw and plate fixation of C4-C7. Visualized portions of the lung apices are unremarkable. Impression: New postsurgical changes otherwise unchanged.
[2018-03-19] MEDS: D5-1/2NS + 20mEq KCL 1,000 ML PRIMARY IV SCH (17:15)
[2018-03-19 21:27] VITALS: TEMP 97.4
[2018-03-19] MEDS: ceFAZolin Inj 1 GM in Sodium Chloride 0.9% 100 ML IV SCH (22:20)
[2018-03-20] MEDS: oxyCODONE-ACETAMINOPHEN 5-325 TAB PO PRN ×2 (03:11→07:00)
[2018-03-20] MEDS: D5-1/2NS + 20mEq KCL 1,000 ML PRIMARY IV SCH (04:31)
[2018-03-20] MEDS: ceFAZolin Inj 1 GM in Sodium Chloride 0.9% 100 ML IV SCH (05:29)
[2018-03-20 07:31] VITALS: O2SAT 95
[2018-03-20 07:33] VITALS: BP 119/63
[2018-03-20 08:02] VITALS: RESP 12
--- NOTE | 2018-03-20 08:18 | CRNA.PROGR ---
Anesthesia Note - Progress Notes Anesthesia Progress Note: Sitting up in bed eating breakfast. AAO at this time and able to have appropriate conversation. Discussed anesthetic course and he has no questions or concerns regarding his anesthetic care.
--- NOTE | 2018-03-20 08:33 | NEURO.PROG ---
Subjective Post Op Day: 1 Pain Management: PO Green Catheter: No Diet: Diabetic Ambulating: Yes Date of Service: 03/20/18 Objective : Data - Labs CBC and BMP: 03/19/18 07:20 - Vital Signs Vital Signs and I&O: Vital Signs - Last Taken Temperature 97.4 F 03/20/18 00:45 Pulse Rate 61 03/20/18 07:00 Respiratory Rate 12 03/20/18 07:00 Blood Pressure 119/63 03/20/18 05:00 Pulse Ox 95 03/20/18 05:00 Intake and Output (24hr x 4 totals) 03/18/18 03/19/18 03/20/18 03/21/18 05:59 05:59 05:59 05:59 Intake Total 4453 / 4453 Output Total 3005 / 3005 Balance 1448 / 1448 Objective : Exam - General General Appearance: No Acute Distress - Head Head Exam: Normal Inspection, Atraumatic - Eye Eye Exam: Normal Appearance - Neck Neck Exam: No Tenderness Additional Neck Exam Details: Surgical wound clean and dry. Surgical drain removed prior to discharge. - Respiratory Respiratory Exam: Breathing Non Labored - GI/Abdominal GI/Abdominal Exam: Non Tender - Extremities Additional Extremities Exam Details: LUE with post surgical scarring. No change. - Back Back Exam: Full ROM - Neurological Neurological Exam: Alert, Oriented x 3 Additional Neurological Exam Details: Left hand rabbet operator weakness, STR 4/5, no change as reported by patient. Right tricep weakness, STR 4/5, no changed as reported by patient. - Psychiatric Psychiatric Exam: Normal Affect, Normal Mood - Integumentary Integumentary Exam: Dry Assessment and Plan - Patient Problems (1) Cervical spinal stenosis Current Visit: Yes Status: Resolved Code(s): M48.02 - Spinal stenosis, cervical region - Assessment / Plan Additional Assessment/Plan Details: Discharge home today. Surgical drain output satisfactory and removed prior to discharge. Home and follow up instructions given.
--- NOTE | 2018-03-23 01:00 | PDOC ---
HPI - History of Present Illness Date of Service: 03/19/18 Time of Service: 15:00 Chief Complaint: Neck pain History of Present Illness: 72 year old male refereed by Dr Newberry for cervical stenosis. He recently had left carpal and ulnar nerve surgery on 08/04/2017. Mr. De Souza states that he had temporary resolution of the arm pain and numbness and tingling. His symptoms subsequently returned and he became interested in surgery. We reviewed the proposed surgical intervention of C4-5, C5-6, C6-7 anterior cervical decompression and fusion. We reviewed the procedure, risks and expected outcome. I explained to him that he may need a posterior procedure if the anterior approach fails to solve the problem. With this understanding, he would like to proceed. He has had no ne medical or neurological complaints since his last evaluation. Past Medical History Medical History: Diabetes, hypertension, tobacco use Tobacco Use: Current Every Day Smoker In the Past 12 Months, Have Used or Abuse Any of the Following Substance: None Medication / Allergies Home Medications: Home Medications 3 Medication Instructions Recorded Confirmed Type Blood-Glucose Meter [Onetouch 1 ea MC BID #180 strip 07/13/15 03/19/18 History Verio Iq] aspirin 81 mg chewable tablet 81 mg PO QDAY tab 04/15/17 03/19/18 History insulin glargine (U-100) 100 #4 Samples 04/15/17 10/27/17 Sample unit/mL (3 mL) subcutaneous pen multivitamin tablet 1 tab PO QDAY tab 04/15/17 03/19/18 History rosuvastatin 40 mg tablet 40 mg PO QPM #90 tab 04/15/17 03/19/18 Rx gabapentin 300 mg capsule 300 mg PO TID #30 cap 06/24/17 03/19/18 Rx insulin glargine (U-100) 100 #3 Samples 10/13/17 10/27/17 Sample unit/mL (3 mL) subcutaneous pen metformin 1,000 mg tablet 1,000 mg PO BID #180 tab 10/27/17 03/19/18 Rx insulin glargine (U-100) 100 #6 Samples 12/09/17 12/09/17 Sample unit/mL (3 mL) subcutaneous pen pen needle, diabetic 31 gauge x See Dose Instructions .ROUTE 01/22/18 Rx 10/10" .MEDSUPPLY #100 ea lisinopril 5 mg tablet 2.5 mg PO QD #90 tab 02/12/18 03/19/18 Rx Ciprofloxacin HCl [Cipro] 250 mg PO BID 5 Days #10 tab 03/20/18 Rx Cyclobenzaprine HCl [Flexeril] 10 mg PO TID PRN #90 tab 03/20/18 Rx oxyCODONE/APAP 5/325 Tab 1 tab PO Q6H PRN #90 tab 03/20/18 Rx [Percocet 5/325 Tab] Allergies/Adverse Reactions: Allergies 3 Allergy/AdvReac Type Severity Reaction Status Date / Time ibuprofen Allergy Severe NOT Verified 03/19/18 07:01 APPLICABLE NSAIDS (Non-Steroidal Allergy Severe NOT Verified 03/19/18 07:01 Anti-Inflamma APPLICABLE Penicillins Allergy Severe Anaphylaxis Verified 03/19/18 07:01 Sulfa (Sulfonamide Allergy Severe Anaphylaxis Verified 03/19/18 07:01 Antibiotics) [Sulfa(Sulfonamide Antibiotics)] hydrocodone AdvReac Severe acts like Verified 03/19/18 07:01 a fool, gets very hot Review of Systems - Review of Systems All Systems: Reviewed & No Additional Complaints Except as Stated Exam - Vitals Vital Signs: Vital Signs Temperature 97.4 F Temperature Source Temporal Artery Scan Pulse Rate [Pulse Oximeter] 61 Pulse Rate 74 Respiratory Rate 12 Blood Pressure [Left Arm] 114/59 Blood Pressure [Right Arm] 119/63 Blood Pressure 123/78 Pulse Ox 95 Oxygen Flow Rate 0.5 Oxygen Delivery Method Room Air Height 5 ft 6 in Weight 156 lb - General General Appearance: No Acute Distress - Head Head Exam: Normal Inspection, Atraumatic - Eye Eye Exam: POSITIVE: Normal Appearance, EOMI - ENT ENT Exam: POSITIVE: Normal Oropharynx - Neck Neck Exam: Normal Inspection, Tenderness - Respiratory Respiratory Exam: POSITIVE: Clear to Auscultation - Bilaterally - Cardiovascular Cardiovascular Exam: POSITIVE: RRR - GI/Abdominal GI/Abdominal Exam: POSITIVE: Normal Bowel Sounds, Non Tender, Non Distended - Rectal Rectal Exam: POSITIVE: Deferred - External Exam: POSITIVE: Deferred - Extremities Extremities Exam: POSITIVE: Full ROM - Back Back Exam: POSITIVE: Full ROM, No CVA Tenderness - Neurological Neurological Exam: POSITIVE: Alert, Oriented x 3, CN II-XII Intact, Speech Intact / Clear, Moves All Extremities Equally, Motor Sensory Deficit, No Fasciculations - Psychiatric Psychiatric Exam: POSITIVE: Normal Affect - Integumentary Integumentary Exam: POSITIVE: Normal Color, Warm, Dry, Intact - Central Line Examination Central Line Present on Admission: No Results - Labs CBC and BMP: 03/19/18 07:20 Assessment and Plan - Assessment / Plan Additional Assessment/Plan Details: Cervical spondylosis with radiculopathy Safe to proceed with surgery.
--- NOTE | 2018-03-23 12:29 | PTI REPORT ---
Thank you for the referral of Esau De Souza. He was seen on 03/20/18 for an inpatient evaluation status post cervical fusion. SUBJECTIVE: The patient is a 72-year-old male who underwent a cervical fusion yesterday. The patient states that he is doing fairly well. He reports a pain level of 2 to 3/10 on the verbal analog scale (0=no pain, 10=worst pain) and states that he has been up with nursing staff to and from the bathroom a few times and feels like he is doing relatively well. The patient states that he lives in [place] with his spouse. He states that he has some stairs out his back door and also to his basement. The patient denies using any assistive device prior to his surgery. PAST MEDICAL HISTORY: Past medical history can be found in the patient's medical record. OBJECTIVE FINDINGS: General observations: The patient was alert and oriented to setting upon PT arrival. The patient did have a drain in place. The patient was instructed on precautions for status post cervical fusion including avoiding end ranges of cervical motion and not to overly stress those along with lifting precautions. Bed mobility: The patient was able to independently move from supine to seated edge of bed. The patient denied any lightheadedness or dizziness and was able to sit edge of bed with good seated balance. Transfers: The patient was able to perform sit to stand transfer safely and independently. Ambulation: The patient was able to ambulate 150 feet with stand by assist x1 for safety. The patient was able to ascend and descent two flights of stairs with stand by assist for safety. ASSESSMENT: The patient has good rehab potential. Problem List: Patient is status post cervical fusion Physical Therapy Goals: To be met by discharge from inpatient: Patient will demonstrate safety and independence with all transfers. Patient will be able to ambulate at least 150 feet safely and independently. Patient will be able to ascend and descend at least 1 flight of stairs in order to return home safely. TREATMENT PLAN: Patient has met goals for Physical Therapy and mobility foreman the patient is safe to return home. INITIAL TREATMENT: Treatment today consisted of the initial evaluation followed by one unit of functional activity. FRAN
== END 2018-03-20 09:49 | disposition home or self-care (01) ==
LOC: MED/SURG 06:33 → OR 06:33 → MED/SURG 20:02
PROVIDERS: ADMIT Neurological Surgery; ATTEND Neurological Surgery